=== PATIENT | male | born 1960 | race Caucasian/White ===

== ENCOUNTER 2016-08-07 07:42 | Emergency (ER) ==
[2016-08-07 07:54] LABS: MANUAL DIFF NEEDED? NO
[2016-08-07 07:58] LABS: BASO% 0.5 % (0.0-0.8); EOS# 0.06 X1000 (0.0-0.7); EOS% 0.5 % (0.0-10.0); HEMATOCRIT 46.9 % (42.0-52.0); HEMOGLOBIN 15.8 g/dL (14.0-18.0); LYMPH# 1.28 X1000 (1.2-3.4); LYMPH% 11.6 % (20.5-51.1); MCH 30.2 PG (27-31); MCHC 33.7 g/dL (33-37); MCV 89.5 FL (81-99); MONO# 0.42 X1000 (0.11-0.59); MONO% 3.8 % (1.7-9.3); MPV 8.8 FL (7.4-10.4); NEUT% 83.6 % (42.2-75.2); PLT 504 X1000 (130-400); RBC 5.24 XMIL (4.7-6.1)
[2016-08-07 08:00] VITALS: BP 127/79
[2016-08-07 08:11] LABS: URINE CULTURE NEEDED? NO; URINE SOURCE CLEAN CATCH
[2016-08-07 08:15] LABS: BILIRUBIN URINE NEGATIVE (NEGATIVE); BLOOD URINE TRACE (NEGATIVE); COLOR YELLOW; GLUCOSE URINE NEGATIVE (NEGATIVE); LEUKOCYTES URINE NEGATIVE (NEGATIVE); NITRITE URINE NEGATIVE (NEGATIVE); PROTEIN URINE 50 mg/dL (NEGATIVE); SP GRAVITY URINE 1.024; TURBIDITY URINE CLEAR (CLEAR); URINE MICRO REVIEW NEEDED? YES; UROBILINOGEN URINE NORMAL (NORMAL)
[2016-08-07 08:24] LABS: UR EPITHELIAL CELLS <10 /HPF (<10); URINE BACTERIA NEGATIVE /HPF; URINE RBC <10 /HPF (<10); URINE WBC <10 /HPF (<10)
[2016-08-07 08:24] LABS: ACETAMINOPHEN < 1.2 ug/mL (10-30); AGAP 17; ALBUMIN 4.6 g/dL (3.5-5.0); ALKALINE PHOSPHATASE 103 U/L (32-122); BUN 11 mg/dL (8-22); CALCIUM 9.4 mg/dL (8.8-10.2); CHLORIDE 100 mmol/L (98-107); COSMO 284; GOT 24 U/L (10-34); GPT 16 U/L (10-44); POTASSIUM 4.3 mmol/L (3.5-5.1); SODIUM 143 mmol/L (136-145); TCO2 26 mmol/L (25-35); TOTAL BILIRUBIN 0.51 mg/dL (0.20-1.00); TOTAL PROTEIN 7.6 g/dL (6.3-8.3)
[2016-08-07 08:27] LABS: UR AMPHETAMINES QUAL NONE DETECTED (NONE DETECT); UR BARBITUATES QUAL NONE DETECTED (NONE DETECT); UR BENZODIAZEPIN QUAL PRESUMPTIVE POSITIVE (NONE DETECT); UR CANNABINOIDS QUAL NONE DETECTED (NONE DETECT); UR COCAINE QUAL NONE DETECTED (NONE DETECT); UR METHADONE QUAL NONE DETECTED (NONE DETECT); UR OPIATES QUAL NONE DETECTED (NONE DETECT); UR OXYCODONE QUAL NONE DETECTED (NONE DETECT); UR PCP QUAL NONE DETECTED (NONE DETECT)
[2016-08-07 08:33] LABS: URINE CASTS NONE SEEN
[2016-08-07 08:34] LABS: URINE CRYSTALS CA OXALATE PRESENT; URINE SMALL ROUND CELLS NONE SEEN
[2016-08-07 08:38] LABS: FREE T4 1.37 ng/dL (0.93-1.70)
--- NOTE | 2016-08-07 08:45 | PROVIDER DOCUMENTATION ---
Addendum entered and electronically signed by Janay Fair Scribe 11:48: Departure - Departure Time of Disposition Order: 11:48 DIAGNOSIS: Suicide ideation Disposition: [facility] 07 Certified Medical Emergency: Emergent Condition: Good Referrals: [Primary Care Provider] - Original Note: HPI-Psychological Disorder <Janay Fair - Last Filed: 08/07/16 11:36> - General Source: patient - History of Present Illness-Psych Onset/Duration: reports: 5 days ago Timing: reports: still present Severity: reports: moderate, severe Situational problems related to:: reports: other (See above) Psychiatric Complaints: reports: depressed, frustrated, suicidal ideation. denies: hostile, homicidal thoughts, impaired concentration, ingestion, injury, insomnia Substance Use: reports: denies Previous psych related hospitalizations?: Yes Patient arrived by:: EMS called by patient Similar Symptoms Previously?: Yes Recently seen or treated by another doctor?: No <Yany Cano - Last Filed: 08/07/16 11:47> - General Chief Complaint: Psych Stated Complaint: si Time Seen by Provider: 08/07/16 07:42 Allergies/Adverse Reactions: Patient Allergies Allergy/AdvReac Type Severity Reaction Status Date / Time levofloxacin [From Levaquin] Allergy SWELLING Verified 08/07/16 08:42 Home Medications: Levothyroxine [Synthroid] 50 microgm PO DAILY 08/07/16 Sertraline [Zoloft] 25 mg PO DAILY 08/07/16 - History of Present Illness-Psych Nature of Presenting Problem: Reports been having SI for several days. H/o depression, but not been taking his antidepressant compliantly. Had neck surgery recently and not been working since 3 months ago due to the surgery. Lives at home by himself. When asked for his suicidal plan, he states that he wants to cut his wrist. (Yany Cano) Review of Systems - Adult - REVIEW OF SYSTEMS - ADULT Constitutional: reports: see HPI, fever, fatique. denies: weight gain, weight loss Eyes: reports: no symptoms reported Ears, Nose, Mouth & Throat: reports: no symptoms reported Cardiovascular: reports: no symptoms reported. denies: chest pain Respiratory: reports: no symptoms reported. denies: chronic cough Gastrointestinal: reports: no symptoms reported. denies: abdominal pain Genitourinary: reports: no symptoms reported Musculoskeletal: reports: no symptoms reported Integumentary: reports: no symptoms reported Neurological: reports: no symptoms reported Psychiatric: reports: see HPI, anxiety, depression, suicidal thoughts. denies: emotional problems Hematologic/Lymphatic: reports: no symptoms reported Allergic/Immunologic: reports: no symptoms reported All Other Systems: Reviewed and Negative <Fany [place] Minda - Last Filed: 08/07/16 11:47> Physical Exam-Psych Focus - Physical Exam-Psych Initial Vital Signs Reviewed: Yes Appearance: appropriate appearance, appropriate insight Neurological: alert, normal mood/affect, calm, oriented x 3, depressed affect, flat. negative: anxious, disoriented x 3 Behavior/Eye Contact/Speech: cooperative, good eye contact, normal speech. negative: threatening eye contact, decreased rate of speech, increased rate of speech, compulsive, uncooperative Thoughts/Hallucinations: normal thought pattern, no apparent hallucination. negative: auditory hallucinations, delusions HENMT: normocephalic/atraumatic, moist mucous membranes Neck: non-tender, full range of motion Respiratory: chest non-tender, lungs clear, normal breath sounds Cardiovascular: normal peripheral pulses, regular rate, rhythm, no edema Abdominal Exam: normal bowel sounds, non tender, soft, no organomegaly Lymphatic: no adenopathy Back Exam: normal inspection Extremity: normal range of motion, non-tender, normal gait, normal inspection Integumentary: normal color, normal turgor, warm/dry <Fany [place] Minda - Last Filed: 08/07/16 11:47> Progress - REASSESSMENT Reassessment #1 Time Reassessed: 11:37 Reassessment Comment: Pt wants to leave AMA <Janay Fair - Last Filed: 08/07/16 11:36> - REASSESSMENT Reassessment #1 Time Reassessed: 11:40 Status: other (Pt's ETOH level =34 and [facility] called. Pt A&O X4, walks aroung at ER. Requested sign AMA. I talked with him in person and in great detail. Pt understand that is any abd outcome, including desth from any reason, eg suicide , pt will take the responsibility, after he leaves ER. Pt states that his SI is from the Zoloft he talkes since 3 days ago, and he stopped it already. He promised to no suicide. Pt walked out ER before sign the paper work. This is either a AMA w/o sign the paper work, or ELOPMENT. But pt was competent to make the decision at the moment to made the decision) <Yany Cano X - Last Filed: 08/07/16 11:47> - PLAN OF CARE/RESULTS Progress/Plan/Lab Results: Laboratory Results - last 24 hr 08/07/16 08/07/16 08/07/16 07:48 07:48 07:48 WBC 11.01 H RBC 5.24 Hgb 15.8 Hct 46.9 MCV 89.5 MCH 30.2 MCHC 33.7 RDW Std Deviation 14.2 Plt Count 504 H MPV 8.8 Immature Gran % (Auto) 0.0 Neut % (Auto) 83.6 H Lymph % (Auto) 11.6 L [place] % (Auto) 3.8 Eos % (Auto) 0.5 Baso % (Auto) 0.5 Immature Gran # (Auto) 0.00 Neut # (Auto) 9.20 H Lymph # (Auto) 1.28 [place] # (Auto) 0.42 Eos # (Auto) 0.06 Baso # (Auto) 0.05 Sodium 143 Potassium 4.3 Chloride 100 Carbon Dioxide 26 Anion Gap 17 BUN 11 Creatinine 1.0 Estimated GFR/1.73 m2 > 60 BUN/Creatinine Ratio 11 Glucose 90 Calculated Osmolality 284 Calcium 9.4 Total Bilirubin 0.51 AST 24 ALT 16 Alkaline Phosphatase 103 Total Protein 7.6 Albumin 4.6 Globulin 3.0 Albumin/Globulin Ratio 1.5 Vitamin B12 TSH Free T4 Urine Source Urine Color Urine Turbidity Urine pH Ur Specific [place] Urine Protein Ur Glucose (Stick) Ur Ketones (Stick) Urine Blood Urine Nitrite Urine Bilirubin Urobilinogen Dipstick Urine Leukocytes Urine WBC (Auto) Urine RBC (Auto) U Epithel Cells (Auto) Urine Bacteria (Auto) Urine Crystals Small Round Cells Urine Casts Urine Yeast-like Cells Salicylates < 3.00 L Urine Opiates Screen Ur Oxycodone Screen Ur Methadone, Qual Acetaminophen < 1.2 L Ur Barbiturates Screen Ur Phencyclidine Scrn Ur Amphetamines Screen U Benzodiazepines Scrn Urine Cocaine Screen U Cannabinoids Screen Plasma/Serum Ethyl Alc 110 H 08/07/16 08/07/16 08/07/16 07:48 07:48 08:04 WBC RBC Hgb Hct MCV MCH MCHC RDW Std Deviation Plt Count MPV Immature Gran % (Auto) Neut % (Auto) Lymph % (Auto) [place] % (Auto) Eos % (Auto) Baso % (Auto) Immature Gran # (Auto) Neut # (Auto) Lymph # (Auto) [place] # (Auto) Eos # (Auto) Baso # (Auto) Sodium Potassium Chloride Carbon Dioxide Anion Gap BUN Creatinine Estimated GFR/1.73 m2 BUN/Creatinine Ratio Glucose Calculated Osmolality Calcium Total Bilirubin AST ALT Alkaline Phosphatase Total Protein Albumin Globulin Albumin/Globulin Ratio Vitamin B12 708 TSH 0.17 L Free T4 1.37 Urine Source CLEAN CATCH Urine Color YELLOW Urine Turbidity CLEAR Urine pH 6.0 Ur Specific [place] 1.024 Urine Protein 50 A Ur Glucose (Stick) NEGATIVE Ur Ketones (Stick) 10 A Urine Blood TRACE A Urine Nitrite NEGATIVE Urine Bilirubin NEGATIVE Urobilinogen Dipstick NORMAL Urine Leukocytes NEGATIVE Urine WBC (Auto) <10 Urine RBC (Auto) <10 U Epithel Cells (Auto) <10 Urine Bacteria (Auto) NEGATIVE Urine Crystals CA OXALATE PRESENT Small Round Cells NONE SEEN Urine Casts NONE SEEN Urine Yeast-like Cells NONE SEEN Salicylates Urine Opiates Screen Ur Oxycodone Screen Ur Methadone, Qual Acetaminophen Ur Barbiturates Screen Ur Phencyclidine Scrn Ur Amphetamines Screen U Benzodiazepines Scrn Urine Cocaine Screen U Cannabinoids Screen Plasma/Serum Ethyl Alc 113 H 08/07/16 08/07/16 08:04 10:36 WBC RBC Hgb Hct MCV MCH MCHC RDW Std Deviation Plt Count MPV Immature Gran % (Auto) Neut % (Auto) Lymph % (Auto) [place] % (Auto) Eos % (Auto) Baso % (Auto) Immature Gran # (Auto) Neut # (Auto) Lymph # (Auto) [place] # (Auto) Eos # (Auto) Baso # (Auto) Sodium Potassium Chloride Carbon Dioxide Anion Gap BUN Creatinine Estimated GFR/1.73 m2 BUN/Creatinine Ratio Glucose Calculated Osmolality Calcium Total Bilirubin AST ALT Alkaline Phosphatase Total Protein Albumin Globulin Albumin/Globulin Ratio Vitamin B12 TSH Free T4 Urine Source Urine Color Urine Turbidity Urine pH Ur Specific [place] Urine Protein Ur Glucose (Stick) Ur Ketones (Stick) Urine Blood Urine Nitrite Urine Bilirubin Urobilinogen Dipstick Urine Leukocytes Urine WBC (Auto) Urine RBC (Auto) U Epithel Cells (Auto) Urine Bacteria (Auto) Urine Crystals Small Round Cells Urine Casts Urine Yeast-like Cells Salicylates Urine Opiates Screen NONE DETECTED Ur Oxycodone Screen NONE DETECTED Ur Methadone, Qual NONE DETECTED Acetaminophen Ur Barbiturates Screen NONE DETECTED Ur Phencyclidine Scrn NONE DETECTED Ur Amphetamines Screen NONE DETECTED U Benzodiazepines Scrn PRESUMPTIVE POSITIVE A Urine Cocaine Screen NONE DETECTED U Cannabinoids Screen NONE DETECTED Plasma/Serum Ethyl Alc 34 H Vital Signs Temp Pulse Resp BP Pulse Ox 08/07/16 07:59 97.8 F 78 18 127/79 99 levofloxacin [From Levaquin] Allergy (Verified 08/07/16 08:42) SWELLING Levothyroxine [Synthroid] 50 microgm PO DAILY 08/07/16 Sertraline [Zoloft] 25 mg PO DAILY 08/07/16 Dietary Diet Regular Diet Start WedAug 07 0824 I&O 08/06/16 08/07/16 08/08/16 06:59 06:59 06:59 Output Total 60 Balance -60 Laboratory 08/07/16 08/07/16 08/07/16 10:36 08:04 08:04 WBC RBC Hgb Hct MCV MCH MCHC RDW Std Deviation Plt Count MPV Immature Gran % (Auto) Neut % (Auto) Lymph % (Auto) [place] % (Auto) Eos % (Auto) Baso % (Auto) Immature Gran # (Auto) Neut # (Auto) Lymph # (Auto) [place] # (Auto) Eos # (Auto) Baso # (Auto) Sodium Potassium Chloride Carbon Dioxide Anion Gap BUN Creatinine Estimated GFR/1.73 m2 BUN/Creatinine Ratio Glucose Calculated Osmolality Calcium Total Bilirubin AST ALT Alkaline Phosphatase Total Protein Albumin Globulin Albumin/Globulin Ratio Vitamin B12 TSH Free T4 Urine Source CLEAN CATCH Urine Color YELLOW Urine Turbidity CLEAR Urine pH 6.0 Ur Specific [place] 1.024 Urine Protein 50 A Ur Glucose (Stick) NEGATIVE Ur Ketones (Stick) 10 A Urine Blood TRACE A Urine Nitrite NEGATIVE Urine Bilirubin NEGATIVE Urobilinogen Dipstick NORMAL Urine Leukocytes NEGATIVE Urine WBC (Auto) <10 Urine RBC (Auto) <10 U Epithel Cells (Auto) <10 Urine Bacteria (Auto) NEGATIVE Urine Crystals CA OXALATE PRESENT Small Round Cells NONE SEEN Urine Casts NONE SEEN Urine Yeast-like Cells NONE SEEN Salicylates Urine Opiates Screen NONE DETECTED Ur Oxycodone Screen NONE DETECTED Ur Methadone, Qual NONE DETECTED Acetaminophen Ur Barbiturates Screen NONE DETECTED Ur Phencyclidine Scrn NONE DETECTED Ur Amphetamines Screen NONE DETECTED U Benzodiazepines Scrn PRESUMPTIVE POSITIVE A Urine Cocaine Screen NONE DETECTED U Cannabinoids Screen NONE DETECTED Plasma/Serum Ethyl Alc 34 H 08/07/16 08/07/16 08/07/16 07:48 07:48 07:48 WBC 11.01 H RBC 5.24 Hgb 15.8 Hct 46.9 MCV 89.5 MCH 30.2 MCHC 33.7 RDW Std Deviation 14.2 Plt Count 504 H MPV 8.8 Immature Gran % (Auto) 0.0 Neut % (Auto) 83.6 H Lymph % (Auto) 11.6 L [place] % (Auto) 3.8 Eos % (Auto) 0.5 Baso % (Auto) 0.5 Immature Gran # (Auto) 0.00 Neut # (Auto) 9.20 H Lymph # (Auto) 1.28 [place] # (Auto) 0.42 Eos # (Auto) 0.06 Baso # (Auto) 0.05 Sodium Potassium Chloride Carbon Dioxide Anion Gap BUN Creatinine Estimated GFR/1.73 m2 BUN/Creatinine Ratio Glucose Calculated Osmolality Calcium Total Bilirubin AST ALT Alkaline Phosphatase Total Protein Albumin Globulin Albumin/Globulin Ratio Vitamin B12 708 TSH 0.17 L Free T4 1.37 Urine Source Urine Color Urine Turbidity Urine pH Ur Specific [place] Urine Protein Ur Glucose (Stick) Ur Ketones (Stick) Urine Blood Urine Nitrite Urine Bilirubin Urobilinogen Dipstick Urine Leukocytes Urine WBC (Auto) Urine RBC (Auto) U Epithel Cells (Auto) Urine Bacteria (Auto) Urine Crystals Small Round Cells Urine Casts Urine Yeast-like Cells Salicylates Urine Opiates Screen Ur Oxycodone Screen Ur Methadone, Qual Acetaminophen Ur Barbiturates Screen Ur Phencyclidine Scrn Ur Amphetamines Screen U Benzodiazepines Scrn Urine Cocaine Screen U Cannabinoids Screen Plasma/Serum Ethyl Alc 113 H 08/07/16 08/07/16 07:48 07:48 WBC RBC Hgb Hct MCV MCH MCHC RDW Std Deviation Plt Count MPV Immature Gran % (Auto) Neut % (Auto) Lymph % (Auto) [place] % (Auto) Eos % (Auto) Baso % (Auto) Immature Gran # (Auto) Neut # (Auto) Lymph # (Auto) [place] # (Auto) Eos # (Auto) Baso # (Auto) Sodium 143 Potassium 4.3 Chloride 100 Carbon Dioxide 26 Anion Gap 17 BUN 11 Creatinine 1.0 Estimated GFR/1.73 m2 > 60 BUN/Creatinine Ratio 11 Glucose 90 Calculated Osmolality 284 Calcium 9.4 Total Bilirubin 0.51 AST 24 ALT 16 Alkaline Phosphatase 103 Total Protein 7.6 Albumin 4.6 Globulin 3.0 Albumin/Globulin Ratio 1.5 Vitamin B12 TSH Free T4 Urine Source Urine Color Urine Turbidity Urine pH Ur Specific [place] Urine Protein Ur Glucose (Stick) Ur Ketones (Stick) Urine Blood Urine Nitrite Urine Bilirubin Urobilinogen Dipstick Urine Leukocytes Urine WBC (Auto) Urine RBC (Auto) U Epithel Cells (Auto) Urine Bacteria (Auto) Urine Crystals Small Round Cells Urine Casts Urine Yeast-like Cells Salicylates < 3.00 L Urine Opiates Screen Ur Oxycodone Screen Ur Methadone, Qual Acetaminophen < 1.2 L Ur Barbiturates Screen Ur Phencyclidine Scrn Ur Amphetamines Screen U Benzodiazepines Scrn Urine Cocaine Screen U Cannabinoids Screen Plasma/Serum Ethyl Alc 110 H Orders Category Date Time Status Regular Diet Diet 08/07/16 08:24 Active ACETAMINOPHEN [TDM] Stat Lab 08/07/16 07:48 Completed ALCOHOL BLOOD Stat Lab 08/07/16 07:48 Completed ALCOHOL BLOOD Stat Lab 08/07/16 10:36 Completed CBC WITH ELECTRONIC DIFF [HEME] Stat Lab 08/07/16 07:48 Completed COMPREHENSIVE METABOLIC PANEL [CHEM] Stat Lab 08/07/16 07:48 Completed ETOH [ALCOHOL BLOOD] Stat Lab 08/07/16 07:48 Completed FREE T4 Stat Lab 08/07/16 07:48 Completed SALICYLATES [TDM] Stat Lab 08/07/16 07:48 Completed TSH Stat Lab 08/07/16 07:48 Completed URINALYSIS W/POSS RFLX CULT [URINALYSIS] Stat Lab 08/07/16 08:04 Completed URINE DRUG SCREEN Stat Lab 08/07/16 08:04 Completed URINE MANUAL MICROSCOPIC [URINALYSIS] Stat Lab 08/07/16 08:04 Completed VITAMIN B12 Stat Lab 08/07/16 07:48 Completed (Yany Cano) Departure - Departure Time of Disposition Order: 11:37 Certified Medical Emergency: Emergent <Janay Fair - Last Filed: 08/07/16 11:36> - Departure Time of Disposition Order: 11:47 Certified Medical Emergency: Emergent <Yany Cano - Last Filed: 08/07/16 11:47> - Departure DIAGNOSIS: Suicide ideation Disposition: AGAINST MEDICAL ADVICE 07 Condition: Good Referrals: [Primary Care Provider] - Attestation - Scribe Verification/Attestation Scribe:: Janay Fair Acting as Scribe for:: Yany Cano Scribe documention review:: This chart was documented by a scribe and accurately reflects the service the provider performed and the decisions made by the provider. <Janay Fair - Last Filed: 08/07/16 11:36> Physician Attestation
== END 2016-08-07 11:40 | disposition left against medical advice (07) ==
LOC: EDBD → ED 07:42 → SUPCPDRO 07:42 → ED 11:40
DX: R45.851 Suicidal ideations (principal); R50.9 Fever, unspecified; R53.83 Other fatigue; F41.9 Anxiety disorder, unspecified; F32.9 Major depressive disorder, single episode, unspecified; Z79.899 Other long term (current) drug therapy
CPT/HCPCS: 80053; 81001; 82607; 84439; 84443; 85025; 99283; G0480